=== PATIENT | male | born 1965 | race Caucasian/White ===

== ENCOUNTER → 2017-07-05 | Outpatient (CLI) | payer OTHER | END | disposition home or self-care (01) | LOC: PCVCIMAG 08:18 | DX: I65.23 Occlusion and stenosis of bilateral carotid arteries (principal); I25.10 Atherosclerotic heart disease of native coronary artery without angina pectoris; I10 Essential (primary) hypertension; E78.2 Mixed hyperlipidemia; R00.1 Bradycardia, unspecified; I45.10 Unspecified right bundle-branch block; Z87.891 Personal history of nicotine dependence; Z79.899 Other long term (current) drug therapy | CPT/HCPCS: 80061; 93005; 93880 ==

== ENCOUNTER → 2019-01-09 | Outpatient (CLI) | payer OTHER ==
--- NOTE | 2019-01-09 10:14 | PCVCIMAG ---
APPROVED REPORT Indications Stenosis History of Smoking Risk Factors Hypertension: Hyperlipidemia Doppler Spectral Velocity Analysis PSV / EDVPSV / EDV ECA (R) 132 / 30 cm/sECA (L) 96 / 17 cm/s dICA (R) 84 / 39 cm/sdICA (L) 54 / 23 cm/s Luis (R) 125 / 37 cm/smICA (L) 101 / 41 cm/s pICA (R) 152 / 60 cm/spICA (L) 129 / 45 cm/s Bulb (R) 81 / 30 cm/sBulb (L) 82 / 23 cm/s dCCA (R) 76 / 26 cm/sdCCA (L) 86 / 29 cm/s mCCA (R) 83 / 23 cm/smCCA (L) 91 / 32 cm/s Vert (R) 38 / 5 cm/sVert (L) 56 / 23 cm/s ICA/CCA 2.00ICA/CCA 1.50 Basic Measurements Blood Pressure: Pulses: Right Left RightLeft Brachial(Sitting) 144/72ihYr918/86mmHgTemporal Real Time B-Mode Imaging Vert. (R)AntegradeVert. (L)Antegrade Findings The right carotid bulb has moderately severe plaque. The right proximal internal carotid artery shows 60-70% stenosis. The right common carotid artery shows no significant stenosis. The right external carotid artery shows no significant stenosis. The left carotid bulb has moderate plaque. The left proximal internal carotid artery shows 50-60% stenosis. The left common carotid artery shows no significant stenosis. The left external carotid artery shows no significant stenosis. Conclusion 1. Right internal carotid artery stenosis (60-70%). 2. Left internal carotid artery stenosis (50-60%) 3. Antegrade vertebral flow Comparison dated June 2017, no significant differences were identified.
--- NOTE | 2019-01-09 11:24 | PCVCIMAG ---
APPROVED REPORT Study performed: 01/09/2019 10:28:38 Exam: Stress Echocardiogram Indication: CAD, Stent Patient Location: Echo lab Stress Nurse: Janelle Status: routine Ht: 5 ft 9 in HR: 64 bpm BP: 140/84 mmHg Rhythm: NSR Medical History Medical History: CAD s/p stent, Hypetension, Hyperlipidemia Procedure The patient underwent an Exercise Stress Test using the Kristian Protocol. Blood pressure, heart rate, and EKG were monitored. An Echocardiogram was performed by artificial insemination technician in four stages in quad fashion. At peak stress, four selected images were obtained and placed side by side with resting images for comparison. Stress Test Details Stress Test: Exercise stress testing was performed using a Kristian protocol. HR Resting HR: 64 bpmMax Heart Rate (APMHR): 165 bpm Max HR Achieved: 162 bpmTarget HR (85% APMHR): 140 bpm % of APMHR: 98 Recovery HR: 108 bpm HR response to stress: Normal HR response to stress BP Resting BP: 140/84 mmHg Max BP: 180/84 mmHg Recovery BP: 158/62 mmHg BP response to stress: Normal blood pressure response to stress. ECG Resting ECG: Sinus Rhythm Stress ECG: Sinus Rhythm ST Change: Normal Maximum ST Deviation: 0 mm Arrhythmia: None Recovery ECG: Sinus Rhythm Recovery ST Change: Normal Recovery ST Deviation: 0 mm Recovery Arrhythmia: None Clinical Reason for Termination: Maximal effort Exercise duration: 11 min sec Highest Stage Achieved: Stage 4: 4.2 mph at 16% grade. Exercise capacity: 13.70 METs Overall Exercise Capacity for Age: Normal Angina Score: None Stress ECG Conclusion ECG: Non-ischemic Clinical: Non-ischemic Barrera Treadmill Score is 11.0 which is Low risk. Pre-Stress Echo The resting Echocardiogram showed normal left ventricular contractility with an estimated Ejection Fraction of about 55-60%. Post-Stress Echo The stress Echocardiogram showed normal left ventricular contractility with an estimated Ejection Fraction of about 60-65%. Conclusion Clinical Response: Non-ischemic Exercise Capacity: Average Stress ECG Response: Non-ischemic Stress Echo Images: Non-ischemic The left ventricle is normal in size and wall thickness in both the rest and stress images. Normal stress echocardiogram with maximal exercise stress. Other Information Study Quality: Good <Conclusion> The left ventricle is normal in size and wall thickness in both the rest and stress images. Normal stress echocardiogram with maximal exercise stress.
== END | disposition home or self-care (01) ==
LOC: PCVCIMAG 08:59
PROVIDERS: ATTEND Internal Medicine
DX: I65.23 Occlusion and stenosis of bilateral carotid arteries (principal); I10 Essential (primary) hypertension; I25.10 Atherosclerotic heart disease of native coronary artery without angina pectoris; E78.5 Hyperlipidemia, unspecified; Z95.5 Presence of coronary angioplasty implant and graft; Z82.49 Family history of ischemic heart disease and other diseases of the circulatory system
CPT/HCPCS: 93325; 93351; 93880